=== PATIENT | male | born 1955 | race Caucasian/White ===

== ENCOUNTER → 2018-04-11 | Outpatient (CLI) | payer BC, OTHER ==
--- NOTE | 2018-04-12 15:59 | MRI ---
EXAM DESCRIPTION: Lumbar Spine w/o Contrast : Magnetic Resonance Imaging. CLINICAL HISTORY: BACK PAIN COMPARISON: CT abdomen and pelvis 03/15/2011. TECHNIQUE: Multiplanar, multiple standard sequences, non contrast MRI, lumbar spine. FINDINGS: L5-S1: Minimal loss of disc space posteriorly and disc desiccation. Posterior midline 4 mm bulge. Bilateral minimal facet arthrosis. Anterior Modic type II endplate reactive changes. Moderate canal narrowing. Bilateral moderate foraminal narrowing. L4-5: Moderate disc space loss and disc desiccation. Modic type II endplate reactive changes anterior and to the right of midline with more disc space loss. Posterior midline 5 mm disc bulge with annular fissure. AP canal diameter 9 mm. Minimal facet arthrosis and ligament hypertrophy. Mild left foraminal narrowing and moderate right foraminal narrowing. L3-4: Disc desiccation and posterior disc space loss with midline 5 mm protrusion impressing on the thecal sac. Posterior Modic type II endplate reactive changes. Minimal ligament hypertrophy bilaterally. AP canal diameter 9 mm. Moderate foraminal narrowing on the left and right foramen is patent. L2-3: Minimal disc desiccation. Minimal disc osteophyte bulge into the base of the right foramen with mild foraminal narrowing. Right foramen is patent. Mild canal narrowing with posterior elements unremarkable. L1 to: Normal signal in the disc and disc space preserved. No bulging. Posterior elements unremarkable. Canal and foramina are patent. T12-L1: Minimal disc desiccation and disc space loss. Anterior bulging. Anterior small region Modic type II endplate reactive changes. Posterior elements are unremarkable. Canal and foramina are patent. Conus terminates at this level. L2-L5 levoscoliosis. Paravertebral soft tissues are unremarkable. Abdominal aorta diameter is 2.5 cm at L3-4 level. Normal marrow signal in the remaining vertebral bodies and the posterior elements. Vertebral bodies are not compressed at any level. IMPRESSION: 1. Posterior midline L5-S1 disc bulge with desiccation and anterior moderate spondylosis. Moderate canal and foraminal narrowing. 2. Moderate spondylosis anteriorly and to the right of midline at L4-5 with disc space loss. Posterior midline disc bulge with annular fissure. Mild central canal stenosis. Moderate right foraminal narrowing. 3. Posterior midline protrusion of the L3-4 disc with desiccation and posterior moderate spondylosis. Mild central canal stenosis and moderate left neural foraminal narrowing. Electronically signed by: Amaury Winston MD 04/12/2018 3:57 PM CDT
== END ==
LOC: MRI 07:43
PROVIDERS: ATTEND Family Medicine
DX: M51.86 Other intervertebral disc disorders, lumbar region (principal); M54.5 Low back pain

== ENCOUNTER 2018-04-14 17:25 | Emergency (ER) | payer BC ==
[2018-04-14 17:39] VITALS: TEMP 98.9
--- NOTE | 2018-04-14 17:50 | ED.PDOC ---
History of Present Illness - General Chief Complaint: Cardiovascular Problem Stated Complaint: Elevated BP, shoulder blade discomfort Time Seen by Provider: 04/14/18 17:30 Source: patient - History of Present Illness Timing/Duration: 1-3 hours - found Severe HTN while at work after face started "tingling". Headache started later. Has had upper back pain x 2 months, other - Headache is resolving Severity: severe Improving Factors: nothing Worsening Factors: nothing Associated Symptoms: headaches, other - interscapular pain Allergies/Adverse Reactions: Allergies Alfuzosin [From Uroxatral] Allergy (Verified 04/14/18 17:37) Morphine Adverse Reaction (Severe, Verified 04/14/18 18:26) Other "Makes him want to kill someone" Home Medications: Ambulatory Orders Bupropion HCl [Wellbutrin Sr] 200 mg PO BID 04/14/18 Clonidine HCl 0.3 mg PO TID 04/14/18 Clopidogrel Bisulfate [Plavix] 75 mg PO DAILY 04/14/18 Fenofibrate [Tricor] 145 mg PO DAILY 04/14/18 Fluticasone Propionate (Nasal) [Fluticasone Propionate Na] 50 mcg KAEL DAILY 02/26 Nebivolol HCl [Bystolic] 20 mg PO BEDTIME 04/14/18 Olmesartan Medoxomil-Amlodipin [Tribenzor] 1 tab PO DAILY 04/14/18 Orphenadrine Citrate [Orphenadrine Citrate ER] 100 mg PO BID PRN #15 tab Primidone 250 mg PO TID 04/14/18 Rosuvastatin Calcium [Crestor] 40 mg PO BEDTIME 04/14/18 Tamsulosin HCl [Flomax] 0.4 mg PO BEDTIME 04/14/18 Tramadol HCl 50 mg PO Q6H PRN 04/14/18 Vortioxetine HBr [Brintellix] 10 mg PO DAILY 04/14/18 Review of Systems - Review of Systems Constitutional: Denies: diaphoresis, weakness EENTM: States: no symptoms reported Respiratory: Denies: cough, short of breath Cardiology: Denies: chest pain, syncope Gastrointestinal/Abdominal: Denies: abdominal pain, nausea, vomiting Genitourinary: States: no symptoms reported Musculoskeletal: States: no symptoms reported Skin: States: no symptoms reported Neurological: States: headache. Denies: numbness, paresthesia Endocrine: States: no symptoms reported Hematologic/Lymphatic: States: no symptoms reported Family Medical History - Family History Father Living Status: Hx Family Congestive Heart Failure: Yes Physical Exam - Physical Exam General Appearance: Alert, Anxious, Well Developed, Well Nourished Eye Exam: bilateral normal Ears, Nose, Throat: hearing grossly normal, normal pharynx Neck: non-tender, limited range of motion Respiratory: chest non-tender, lungs clear, normal breath sounds, no respiratory distress Cardiovascular/Chest: normal peripheral pulses, regular rate, rhythm Gastrointestinal/Abdominal: normal bowel sounds, non tender, soft Back Exam: normal inspection, no CVA tenderness, no vertebral tenderness, other - tender to interscapular area Extremity: normal range of motion, non-tender, normal inspection Neurologic: alert, normal mood/affect, oriented x 3 Skin Exam: normal color, warm/dry Lymphatic: no adenopathy Progress - EKG/XRAY/CT EKG: Sinus, RBBB, Abnormal Q waves - small Q's in III and AVF Comments: rate 79, ID [id number], QRS 150 Departure - Departure Clinical Impression: HTN (hypertension) Qualifiers: Hypertension type: essential hypertension Qualified Code(s): I10 - Essential ( primary) hypertension Headache Qualifiers: Headache type: tension-type Headache chronicity pattern: acute headache Disposition: Discharge to Home or Self Care Departure Forms: ED Discharge - Pt. Copy, Patient Portal Self Enrollment Instructions: DI for Chest Pain Referrals: Manuel Petit III, MD [Primary Care Provider] - 1-2 Weeks Prescriptions: Orphenadrine Citrate [Orphenadrine Citrate ER] 100 mg PO BID PRN #15 tab PRN Reason: Muscle Spasms Home Medications: Ambulatory Orders Bupropion HCl [Wellbutrin Sr] 200 mg PO BID 04/14/18 Clonidine HCl 0.3 mg PO TID 04/14/18 Clopidogrel Bisulfate [Plavix] 75 mg PO DAILY 04/14/18 Fenofibrate [Tricor] 145 mg PO DAILY 04/14/18 Fluticasone Propionate (Nasal) [Fluticasone Propionate Na] 50 mcg KAEL DAILY 02/26 Nebivolol HCl [Bystolic] 20 mg PO BEDTIME 04/14/18 Olmesartan Medoxomil-Amlodipin [Tribenzor] 1 tab PO DAILY 04/14/18 Orphenadrine Citrate [Orphenadrine Citrate ER] 100 mg PO BID PRN #15 tab Primidone 250 mg PO TID 04/14/18 Rosuvastatin Calcium [Crestor] 40 mg PO BEDTIME 04/14/18 Tamsulosin HCl [Flomax] 0.4 mg PO BEDTIME 04/14/18 Tramadol HCl 50 mg PO Q6H PRN 04/14/18 Vortioxetine HBr [Brintellix] 10 mg PO DAILY 04/14/18
--- NOTE | 2018-04-14 18:17 | CT ---
EXAM DESCRIPTION: Head CLINICAL HISTORY: headache, HTN COMPARISON: None available TECHNIQUE: Noncontrast head CT was performed with routine protocol. FINDINGS: Normal jennings-white matter differentiation. Ventricles and sulci are normal for age. No high density hemorrhage, focal edema or shift of the midline. No sulcal effacement. Normal orbital contents. Basilar cisterns appear clear. Intact calvarium with no fracture or lytic lesion. Normal aeration of tympanic cavities and mastoid air cells. No fluid levels in the paranasal sinuses. Skull base appears intact. Symmetrical internal auditory canals. IMPRESSION: No acute intracranial pathologic process. This exam was performed according to our departmental dose-optimization program, which includes automated exposure control, adjustment of the mA and/or kV according to patient size and/or use of iterative reconstruction technique. Total DLP equals 967.47 mGycm. Electronically signed by: James Livingston MD 04/14/2018 6:16 PM CDT
[2018-04-14] MEDS ORDERED: MORPHINE SULFATE INJ 10 MG/ML VIAL ONE (18:21)
[2018-04-14] MEDS ORDERED: ONDANSETRON INJ 4 MG/2 ML VIAL ONE (18:21)
[2018-04-14] MEDS ORDERED: MORPHINE SULFATE INJ 10 MG/ML VIAL IV ONE (18:23)
[2018-04-14] MEDS ORDERED: ONDANSETRON INJ 4 MG/2 ML VIAL IV ONE (18:24)
[2018-04-14] MEDS ORDERED: HYDROmorphone HCL INJ 2 MG/ML VIAL IV ONE ×2 (18:26→18:27)
[2018-04-14 18:34] VITALS: O2SAT 97
[2018-04-14] MEDS ORDERED: LABETALOL INJ 5 MG/ML VIAL IV ONE (18:48)
[2018-04-14] MEDS ORDERED: cloNIDine HCL 0.1 MG TAB PO ONE (19:44)
[2018-04-14] MEDS ORDERED: IODOFORM 1/4 INCH 1 EA BTTL TOP ONE (19:57)
[2018-04-14 20:59] VITALS: BP 168/110
== END 2018-04-14 20:59 | disposition home or self-care (01) ==
LOC: ER 17:25
DX: I10 Essential (primary) hypertension (principal); G44.209 Tension-type headache, unspecified, not intractable; I45.10 Unspecified right bundle-branch block; Z79.02 Long term (current) use of antithrombotics/antiplatelets; Z79.899 Other long term (current) drug therapy
CPT/HCPCS: 36415; 70450; 80053; 84484; 85025; 93005; J1170; J2060; J2405

== ENCOUNTER → 2018-04-15 | Outpatient (CLI) | payer BC ==
--- NOTE | 2018-04-15 11:26 | US ---
EXAM DESCRIPTION: Retroperitoneal renal sonogram Renal arterial Doppler sonogram. CLINICAL HISTORY: 62 years Male, HYPERTENSION COMPARISON: None. TECHNIQUE: Retroperitoneal sonogram was performed to evaluate the kidneys and bladder. Doppler sonography was utilized to evaluate renal arteries and veins. FINDINGS: Renal and retroperitoneal sonogram Right kidney Right renal length is 13.4 cm. Renal cortical thickness is normal but the echogenicity appears markedly increased consistent with chronic renal parenchymal disease. No right renal mass, cyst or shadowing stone. No hydronephrosis. Left kidney Left renal length is 11.4 cm. Renal cortical thickness appears mildly decreased at the upper and lower poles suggesting chronic scarring. Renal parenchymal echogenicity appears increased consistent with chronic renal disease. No left renal mass, cyst or shadowing stone. No hydronephrosis. Urinary bladder No images of the bladder were included. Renal Doppler sonogram Right Color Doppler imaging shows positive arterial and venous flow in the right renal hilum. Right renal artery peak systolic flow velocity measures 66 cm/s at the hilum. The mid right renal artery peak systolic velocity 66 cm/s. Proximal right renal artery near the aorta measures 61 cm/s. Aortic velocity is 60 cm/s. These velocities are normal. Left Proximal left renal artery peak systolic velocity is 106 cm/s. The distal left renal artery velocity is 50 cm/s. Mid left renal artery velocity is 143 cm/s. With aortic velocity of 60 cm/s, these left renal velocities are within normal limits. Mildly elevated flow velocity in the mid left renal artery may indicate mild stenosis, not hemodynamically significant. (Significant renal artery stenosis are diagnosed when renal artery velocity reaches a level 3.5 times that of the aorta or greater.) IMPRESSION: Hyperechoic kidneys consistent with chronic renal parenchymal disease. No direct evidence of renal artery stenosis. Electronically signed by: James Livingston MD 04/15/2018 11:24 AM CDT
== END ==
LOC: US 08:46
PROVIDERS: ATTEND Family Medicine
DX: I10 Essential (primary) hypertension (principal)

== ENCOUNTER → 2020-03-09 | Outpatient (CLI) | payer BC | LOC: GMAL 16:24 | PROVIDERS: ATTEND Family Medicine | DX: Z00.00 Encounter for general adult medical examination without abnormal findings (principal) ==

== ENCOUNTER → 2020-08-29 | Outpatient (CLI) | payer BC | LOC: GMAL 14:24 | PROVIDERS: ATTEND Family Medicine | DX: Z79.899 Other long term (current) drug therapy (principal); R53.83 Other fatigue; R73.9 Hyperglycemia, unspecified; E78.49 Other hyperlipidemia; E53.8 Deficiency of other specified B group vitamins ==